=== PATIENT | male | born 1975 | race Caucasian/White ===

== ENCOUNTER 2022-04-15 18:20 | Emergency (ER) | payer BC ==
[2022-04-15] MEDS ORDERED: diphenhydrAMINE 25 MG Cap PO ONE (18:25)
[2022-04-15] MEDS ORDERED: Cetirizine 10 MG Tab PO ONE (18:25)
== END 2022-04-15 20:40 | disposition home or self-care (01) ==
LOC: MW.ED 18:20
DX: L50.0 Allergic urticaria (principal); K21.9 Gastro-esophageal reflux disease without esophagitis; Z79.899 Other long term (current) drug therapy
CPT/HCPCS: 99283; A9270

== ENCOUNTER 2023-03-02 18:42 | Emergency (ER) | payer BC ==
[2023-03-02] MEDS ORDERED: Ketorolac 30 MG/ML SDV IM ONE (19:43)
== END 2023-03-02 22:42 | disposition home or self-care (01) ==
LOC: MW.ED 18:42
DX: S00.83XA Contusion of other part of head, initial encounter (principal); K21.9 Gastro-esophageal reflux disease without esophagitis; Z79.899 Other long term (current) drug therapy; W22.09XA Striking against other stationary object, initial encounter
CPT/HCPCS: 70486; 96372; 99283; J1885; 99284